=== PATIENT | female | born 1965 | race Caucasian/White ===

== ENCOUNTER 2017-06-05 08:42 | Emergency (ER) | payer OTHER ==
[~2017-06-05] VITALS: Ht 160 cm; Wt 89.8 kg
[~2017-06-05 08:42] MED LIST: ALBU8I INH; AMLO5TAB22 PO; ASPI81TA82 PO; B2100TAB PO; BACL10TA PO; BUTACAP PO; CLON.1 PO; CYMB30CA PO; FEXO180 PO; GABA300C3 PO; HYDR-3534 PO; META0.52 PO; MULT-65 PO; PROT40TA PO; TOPI25 PO; VITA250L PO; VITA50TA3 PO
[2017-06-05 08:56] VITALS: BP 150/82; PULSE 109; RESP 18; TEMP 98.3; O2SAT 96
[2017-06-05] MEDS ORDERED: SODIUM CHLOR 0.9% 1000 ML INJ 1,000 ML IV SCH (09:03)
[2017-06-05 09:08] VITALS: O2SAT 96
[2017-06-05] MEDS ORDERED: ALUMINUM/MAGNESIUM/SIMETH 30 ML CUP PO ONE (09:15)
[2017-06-05] MEDS ORDERED: SODIUM CHLORIDE 0.9% FLUSH 10 ML FLUSH IV FLUSH PRN (09:15)
[2017-06-05] MEDS ORDERED: ONDANSETRON HCL 4 MG/2 ML VIAL IVP ONE (09:15)
[2017-06-05] MEDS ORDERED: LIDOCAINE VISCOUS 2% SOLN 15 ML UDC PO ONE (09:15)
--- NOTE | 2017-06-05 09:15 | PD ---
HPI Chief Complaint: GI Complaint Time Seen by Provider: 09:03 Travel History International Travel<30 days: No Contact w/Intl Traveler<30days: No Traveled to known affect area: No History of Present Illness HPI 52-year-old female with history of fibromyalgia, gastroesophageal reflux, multiple medical issues, presents to the ER today because of 4 weeks' history of cough, sore throat, nausea, vomiting, and diarrhea. She denies any fevers, abdominal pains, or other symptoms. She has been to her primary care physician multiple times, last time was 2 weeks ago and had been given treatment for viral syndrome. She is scheduled to see a GI doctor in 2 weeks. She states that she was to figure out what's going on, has been vomiting about 3 times today already. Modifying Factors: None Associated Signs & Symptoms: Cough, sore throat, nausea, vomiting, diarrhea for at least 4 weeks Risk Factors: None PFSH Past Medical History Arthritis: Yes (RIGHT KNEE) Autoimmune Disease: No Anxiety: No Depression: Yes Heart Rhythm Problems: No Cancer: No Cardiac Catheterization: No Cardiovascular Problems: Yes (htn) High Cholesterol: No Chest Pain: No Congestive Heart Failure: No Diabetes: No Diminished Hearing: No Diverticulitis: Yes (DIVERTICULOSIS) Endocrine: No Fibromyalgia: Yes Gastrointestinal Disorders: Yes (DIVERTICULOSIS, GERD) GERD: Yes Genitourinary: No Hepatitis: No Hiatal Hernia: No Hypertension: Yes Immune Disorder: Yes (FIBROMYALGIA) Implanted Vascular Access Dvce: No Musculoskeletal: Yes (FIBROMYALGIA) Neurologic: Yes (MIGRAINES, 2 TIAS) Psychiatric: No Reproductive: No Respiratory: No Migraines: Yes Myocardial Infarction: No Thyroid Disease: No Ulcer: No Influenza Vaccination: Yes ?: Not Menopausal: Yes Past Surgical History Abdominal Surgery: Yes (GALLBLADDER REMOVAL ) AICD: No Cardiac Surgery: No Cholecystectomy: Yes (1991) Coronary Artery Bypass Graft: No Ear Surgery: No Endocrine Surgery: No Eye Surgery: No Gynecologic Surgery: Yes (HYSTERECTOMY ) Hysterectomy: Yes Joint Replacement: No Oral Surgery: No Pacemaker: No Thoracic Surgery: No Other Surgery: Yes Family History Family Myocardial Infarction: Yes Social History Alcohol Use: Yes (OCCASIONAL) Tobacco Use: Yes (1/2 PPD) Substance Use: No Allergies-Medications (Allergen,Severity, Reaction): Coded Allergies: cefepime (Unverified Allergy, Severe, Rash, 06/05/17) ceftaroline fosamil (Unverified Allergy, Severe, Rash, 06/05/17) cephalexin (Unverified Allergy, Severe, HIVES, 06/05/17) cimetidine (Unverified Allergy, Severe, Anaphylaxis, PARALYZES MUSCLE, 06/05) sumatriptan (Unverified Allergy, Severe, STOPS BREATHING, 06/05/17) bupropion (Unverified Allergy, Intermediate, HIVES, 06/05/17) acetaminophen (Unverified Adverse Reaction, Severe, Nausea/Vomiting, ) hydrocodone (Unverified Adverse Reaction, Severe, Nausea/Vomiting, 06/05/17) Reported Meds & Prescriptions Reported Meds & Active Scripts Active Reported Riboflavin 100 Mg Tablet 500 Mg PO DAILY Vitamin B-6 (Pyridoxine HCl) 100 Mg Tab 200 Mg PO DAILY Lyrica (Pregabalin) 225 Mg Cap 250 Mg PO BID [servella] 25 Mg PO BID Psyllium (Psyllium Husk) 0.4 Gram Capsule 1 Cap PO DAILY Topamax (Topiramate) 50 Mg Tab 75 Mg PO BID Protonix (Pantoprazole Sodium) 40 Mg Tab 40 Mg PO BID Multi-Vitamin Daily (Multiple Vitamin) 1 Tab Tab 1 Tab PO DAILY Lortab (Hydrocodone-Acetaminophen) 7.5-325 Mg Tab 1 Tab PO Q6H PRN Buffy Allergy (Fexofenadine HCl) 180 Mg Tab 180 Mg PO DAILY B-12 (Cyanocobalamin) 2,500 Mcg Tab 2,500 Mcg PO DAILY Clonidine (Clonidine HCl) 0.1 Mg Tab 0.1 Mg PO BID Baclofen 10 Mg Tab 10 Mg PO BID Aspirin 81 Mg Chew 81 Mg CHEW DAILY Amlodipine (Amlodipine Besylate) 5 Mg Tab 5 Mg PO DAILY Ventolin Hfa 18 GM Inh (Albuterol Sulfate) 90 Mcg/Act Aer 2 Puff INH Q4-6H PRN Review of Systems Except as stated in HPI: all other systems reviewed are Neg Physical Exam Narrative GENERAL: Well-developed middle age white female patient currently mild distress. Awake and oriented 3. SKIN: Focused skin assessment warm/dry. HEAD: Atraumatic. Normocephalic. EYES: Pupils equal and round. No scleral icterus. No injection or drainage. ENT: No nasal bleeding or discharge. Mucous membranes pink and moist. Mild pharyngeal erythema without exudates. Tonsillar pillars are symmetrical. No significant uvular edema. NECK: Trachea midline. No JVD. CARDIOVASCULAR: Regular rate and rhythm. No murmur appreciated. RESPIRATORY: No accessory muscle use. Clear to auscultation. Breath sounds equal bilaterally. GASTROINTESTINAL: Abdomen soft, non-tender, nondistended. Hepatic and splenic margins not palpable. MUSCULOSKELETAL: No obvious deformities. No clubbing. No cyanosis. No edema. NEUROLOGICAL: Awake and alert. No obvious cranial nerve deficits. Motor grossly within normal limits. Normal speech. PSYCHIATRIC: Appropriate mood and affect; insight and judgment normal. Data Data Last Documented VS Vital Signs Date Time Temp Pulse Resp B/P (MAP) Pulse Ox O2 Delivery O2 Flow Rate FiO2 06/05/17 09:08 96 Room Air 06/05/17 08:56 98.3 109 18 150/82 (104) Orders Orders Complete Blood Count With Diff (06/05/17 09:03) Comprehensive Metabolic Panel (06/05/17 09:03) Lipase (06/05/17 09:03) Abdomen, Flat & Upright (06/05/17 ) Iv Access Insert/Monitor (06/05/17 09:03) Ecg Monitoring (06/05/17 09:03) Oximetry (06/05/17 09:03) Ondansetron Inj (Zofran Inj) (06/05/17 09:15) Sodium Chlor 0.9% 1000 Ml Inj (Ns 1000 M (06/05/17 09:03) Sodium Chloride 0.9% Flush (Ns Flush) (06/05/17 09:15) Chest, Single Ap (06/05/17 09:03) Al-Mag Hy-Si 40-40-4 Mg/Ml Liq (Mag-Al P (06/05/17 09:15) Lidocaine 2% Viscous (Xylocaine 2% Visco (06/05/17 09:15) Group A Rapid Strep Screen (06/05/17 09:03) Strep Culture (Group A) (06/05/17 09:30) Potassium Chloride (Kcl) (06/05/17 10:30) Ct Abd/Pel W Iv Contrast(Rout) (06/05/17 10:50) Iohexol 350 Inj (Omnipaque 350 Inj) (06/05/17 11:12) Labs Laboratory Tests Test 06/05/17 09:29 White Blood Count 8.2 TH/MM3 Red Blood Count 4.72 MIL/MM3 Hemoglobin 14.2 GM/DL Hematocrit 41.7 % Mean Corpuscular Volume 88.4 FL Mean Corpuscular Hemoglobin 30.2 PG Mean Corpuscular Hemoglobin Concent 34.1 % Red Cell Distribution Width 13.3 % Platelet Count 204 TH/MM3 Mean Platelet Volume 7.9 FL Neutrophils (%) (Auto) 63.9 % Lymphocytes (%) (Auto) 26.7 % Monocytes (%) (Auto) 7.1 % Eosinophils (%) (Auto) 1.5 % Basophils (%) (Auto) 0.8 % Neutrophils # (Auto) 5.2 TH/MM3 Lymphocytes # (Auto) 2.2 TH/MM3 Monocytes # (Auto) 0.6 TH/MM3 Eosinophils # (Auto) 0.1 TH/MM3 Basophils # (Auto) 0.1 TH/MM3 CBC Comment DIFF FINAL Differential Comment Blood Urea Nitrogen 6 MG/DL Creatinine 1.10 MG/DL Random Glucose 171 MG/DL Total Protein 7.7 GM/DL Albumin 3.7 GM/DL Calcium Level 9.4 MG/DL Alkaline Phosphatase 83 U/L Aspartate Amino Transf (AST/SGOT) 37 U/L Alanine Aminotransferase (ALT/SGPT) 46 U/L Total Bilirubin 0.5 MG/DL Sodium Level 143 MEQ/L Potassium Level 2.9 MEQ/L Chloride Level 109 MEQ/L Carbon Dioxide Level 23.0 MEQ/L Anion Gap 11 MEQ/L Estimat Glomerular Filtration Rate 52 ML/MIN Lipase 131 U/L MDM Medical Decision Making Medical Screen Exam Complete: Yes Emergency Medical Condition: Yes Medical Record Reviewed: Yes Interpretation(s) Laboratory Tests Test 06/05/17 09:29 Blood Urea Nitrogen 6 MG/DL (7-18) Creatinine 1.10 MG/DL (0.50-1.00) Random Glucose 171 MG/DL (74-106) Potassium Level 2.9 MEQ/L (3.5-5.1) Chloride Level 109 MEQ/L (98-107) Estimat Glomerular Filtration Rate 52 ML/MIN (>89) Last 24 hours Impressions Chest X-Ray 06/05/17 0903 Signed Impressions: Service Date/Time: Monday, June 05, 2017 09:12 - CONCLUSION: No acute disease. El Wyatt MD Abdomen X-Ray 06/05/17 0000 Signed Impressions: Service Date/Time: Monday, June 05, 2017 09:13 - CONCLUSION: Nonspecific bowel gas pattern. El Wyatt MD Differential Diagnosis Viral syndrome versus strep pharyngitis versus dehydration versus metabolic issues versus GERD versus pneumonia Narrative Course Lab work shows a low potassium and potassium was given in the ER. Patient was given Zofran with improvement in nausea and vomiting in the ER. Initial x-ray does not show any signs of obstruction. Strep test is negative. Case was discussed with who is covering for [facility] and he saw the patient, wanted to get a CAT scan for further evaluation. CAT scan was done and did not show any signs of acute processes. At this point, considering that the symptoms of been going on for weeks and months, he states that the patient can be released and he will obtain patient GI follow-up this coming week. Return for any worsening in symptoms as needed. The plan has been discussed with the patient and she states understanding. Diagnosis Primary Impression: Nausea & vomiting Additional Instructions: Follow-up with GI doctor as discussed with [facility] physician. Return for worsening in symptoms as needed. Disposition: 01 DISCHARGE HOME Condition: Stable Efrain Tirado MD Jun 05, 2017 09:15
--- NOTE | 2017-06-05 09:32 | RADRPT ---
EXAM DATE/TIME: 06/05/2017 09:13 [facility] COMPARISON: No previous studies available for comparison. INDICATIONS : Nausea, vomiting, diarrhea, cramping. MEDICAL HISTORY : Hypertension. Diverticulosis. Gastroesophageal reflux disease. TIA. Fibromyalgia. Arthritis. SURGICAL HISTORY : Cholecystectomy. Hysterectomy. Right knee. Hernia repair. ENCOUNTER: Initial ACUITY: 4 - 6 months PAIN SCORE: 4/10 LOCATION: abdomen FINDINGS: Cholecystectomy clips right upper quadrant and numerous surgical tacks overlie the abdomen. A paucity of bowel gas is seen. No obvious dilated loops. No abnormal calcifications. CONCLUSION: Nonspecific bowel gas pattern. El Wyatt MD on June 05, 2017 at 9:29 Board Certified Radiologist. This report was verified electronically.
--- NOTE | 2017-06-05 09:34 | RADRPT ---
EXAM DATE/TIME: 06/05/2017 09:12 [facility] COMPARISON: CHEST SINGLE AP, May 03, 2016, 21:57. INDICATIONS : Sore throat, cough. MEDICAL HISTORY : Hypertension. Diverticulosis. Gastroesophageal reflux disease. TIA. Fibromyalgia. Arthritis. SURGICAL HISTORY : Cholecystectomy. Hysterectomy. Right knee. Hernia repair. ENCOUNTER: Initial ACUITY: 4 - 6 months PAIN SCORE: 0/10 LOCATION: chest FINDINGS: A single view of the chest demonstrates the lungs to be symmetrically aerated without evidence of mas s, infiltrate or effusion. The cardiomediastinal contours are unremarkable. Osseous structures are intact. CONCLUSION: No acute disease. El Wyatt MD on June 05, 2017 at 9:30 Board Certified Radiologist. This report was verified electronically.
[2017-06-05 09:40] LABS: AUTOMATED NEUTROPHIL # 5.2 TH/MM3 (1.8-7.7); BASOPHIL # 0.1 TH/MM3 (0-0.2); BASOPHIL % 0.8 % (0.0-2.0); EOSINOPHIL # 0.1 TH/MM3 (0-0.4); EOSINOPHIL % 1.5 % (0.0-4.0); HEMATOCRIT 41.7 % (35.0-46.0); HEMO FLAGS DIFF FINAL; LYMPH % 26.7 % (9.0-44.0); LYMPHOCYTE # 2.2 TH/MM3 (1.0-4.8); MEAN CELL VOLUME 88.4 FL (80.0-100.0); MEAN CORPUSCULAR HEMOGLOBIN 30.2 PG (27.0-34.0); MEAN CORPUSCULAR HGB CONC 34.1 % (32.0-36.0); MONO % 7.1 % (0.0-8.0); NEUT % 63.9 % (16.0-70.0); PLATELET COUNT 204 TH/MM3 (150-450); RED BLOOD COUNT 4.72 MIL/MM3 (4.00-5.30); RED CELL DISTRIBUTION WIDTH 13.3 % (11.6-17.2); WHITE BLOOD COUNT 8.2 TH/MM3 (4.0-11.0)
[2017-06-05 09:53] LABS: AST (GOT) 37 U/L (15-37); GLOMERULAR FILTRATION RATE 52 ML/MIN (>89)
[2017-06-05] MEDS ORDERED: CLON0.1T PO (10:08)
[2017-06-05] MEDS ORDERED: VENTAER INH (10:08)
[2017-06-05] MEDS ORDERED: [UNRECOGNIZED DRUG - OTHER] PO (10:08)
[2017-06-05] MEDS ORDERED: PSYL0.4C PO (10:08)
[2017-06-05] MEDS ORDERED: ASPI81CH CHEW (10:08)
[2017-06-05] MEDS ORDERED: MULT-65 PO (10:08)
[2017-06-05] MEDS ORDERED: RIBO100T2 PO (10:08)
[2017-06-05] MEDS ORDERED: CYAN2500 PO (10:08)
[2017-06-05] MEDS ORDERED: BACL10TA PO (10:08)
[2017-06-05] MEDS ORDERED: PROT40TA PO (10:08)
[2017-06-05] MEDS ORDERED: AMLO5TAB2 PO (10:08)
[2017-06-05] MEDS ORDERED: PYRI100T PO (10:08)
[2017-06-05] MEDS ORDERED: HYDR-3534 PO (10:08)
[2017-06-05] MEDS ORDERED: FEXO15TA PO (10:08)
[2017-06-05] MEDS ORDERED: TOPA50TA7 PO (10:08)
[2017-06-05] MEDS ORDERED: LYRI225C PO (10:08)
[2017-06-05 10:18] LABS: ALKALINE PHOSPHATASE 83 U/L (45-117); ALT (GPT) 46 U/L (10-53); ANION GAP 11 MEQ/L (5-15); BLOOD UREA NITROGEN 6 MG/DL (7-18); CHLORIDE 109 MEQ/L (98-107); SODIUM (NA) 143 MEQ/L (136-145); TOTAL BILIRUBIN ADULT 0.5 MG/DL (0.2-1.0)
[2017-06-05 10:20] LABS: POTASSIUM 2.9 MEQ/L (3.5-5.1)
[2017-06-05] MEDS ORDERED: POTASSIUM CHLORIDE 10 MEQ CONTROLLED RELEASE TAB PO ONE (10:30)
[2017-06-05] MEDS ORDERED: IOHEXOL 350 MG/ML 10 ML VIAL (for RAD DIAG) IVCONTRAST ONE (11:12)
--- NOTE | 2017-06-05 11:40 | HHI.PR ---
Subjective Remarks Called to see patient with 4 weeks of GERD ,nausea and vomit cough loose stools just feeling badly in er had lab tests which showed low potassium ,cmp lipase cbc all normal as was rapid strep test. Patient is on multiple medications for fibromyalgia including gabapentin cymbalta . Patient was given zofran and potassium ,does have GI appt but is 2 weeks away . I ordered CT abdomen for evaluation. Objective Vitals GENERAL: SKIN: Warm and dry. HEAD: Atraumatic. Normocephalic. EYES: Pupils equal and round. No scleral icterus. No injection or drainage. ENT: No nasal bleeding or discharge. Mucous membranes pink and moist. NECK: Trachea midline. No JVD. CARDIOVASCULAR: Regular rate and rhythm. RESPIRATORY: No accessory muscle use. Clear to auscultation. Breath sounds equal bilaterally. GASTROINTESTINAL: Abdomen soft, non-tender, nondistended. Hepatic and splenic margins not palpable. MUSCULOSKELETAL: Extremities without clubbing, cyanosis, or edema. No obvious deformities. NEUROLOGICAL: Awake and alert. No obvious cranial nerve deficits. Motor grossly within normal limits. Five out of 5 muscle strength in the arms and legs. Normal speech. PSYCHIATRIC: Appropriate mood and affect; insight and judgment normal. Vital Signs Date Time Temp Pulse Resp B/P (MAP) Pulse Ox O2 Delivery O2 Flow Rate FiO2 06/05/17 09:08 96 Room Air 06/05/17 08:56 98.3 109 18 150/82 (104) 96 Result Diagram: 06/05/1792806/05/17 0929 A/P Problem List: (1) Nausea & vomiting ICD Codes: R11.2 - Nausea with vomiting, unspecified Plan: await CT if negative will try discharge and i will move up GI appt. will probably need endo and colon last colon over 1 year ago (2) Abdominal pain ICD Codes: R10.9 - Unspecified abdominal pain Plan: as above Assessment and Plan as above check CT abdomen and to have prescription for zofran and potassium and continue home medications Nakul Verduzco MD Jun 05, 2017 11:40
--- NOTE | 2017-06-05 11:41 | RADRPT ---
EXAM DATE/TIME: 06/05/2017 11:07 [facility] COMPARISON: CT ABDOMEN & PELVIS W CONTRAST, July 10, 2015, 20:59. INDICATIONS : Nausea and vomiting. IV CONTRAST: 95 cc Omnipaque 350 (iohexol) IV ORAL CONTRAST: No oral contrast ingested. RADIATION DOSE: 19.96 CTDIvol (mGy) MEDICAL HISTORY : Hypertension. Diverticulosis. SURGICAL HISTORY : Cholecystectomy. Hysterectomy. ENCOUNTER: Initial ACUITY: 1 day PAIN SCALE: 0/10 LOCATION: abdomen TECHNIQUE: Volumetric scanning of the abdomen and pelvis was performed. Using automated exposure control and ad justment of the mA and/or kV according to patient size, radiation dose was kept as low as reasonably achievable to obtain optimal diagnostic quality images. DICOM format image data is available electro nically for review and comparison. FINDINGS: No pleural or pericardial effusions. Patient is status post cholecystectomy and hysterectomy. There i s marked fatty infiltration of the liver. Spleen, pancreas, adrenal glands, kidneys are unremarkable. Patient has had previous mesh repair of ventral hernia. Urinary bladder is unremarkable. There is di verticulosis of the sigmoid colon without diverticulitis. Descending colonic and transverse colonic d iverticuli are also noted. The bilateral ovaries are normal in appearance. Atherosclerotic calcificat ions of the aorta and iliac branches identified. Lung bases are clear. Osseous structures are intact. CONCLUSION: No acute disease. El Wyatt MD on June 05, 2017 at 11:38 Board Certified Radiologist. This report was verified electronically.
[2017-06-05 12:24] VITALS: BP 142/78
== END 2017-06-05 12:26 | disposition home or self-care (01) ==
LOC: PHED 08:42
DX: R11.2 Nausea with vomiting, unspecified (principal); E87.6 Hypokalemia; R10.9 Unspecified abdominal pain; R05 Cough; R07.0 Pain in throat; R19.7 Diarrhea, unspecified; I10 Essential (primary) hypertension; F17.200 Nicotine dependence, unspecified, uncomplicated; Z87.39 Personal history of other diseases of the musculoskeletal system and connective tissue; Z86.59 Personal history of other mental and behavioral disorders; Z86.79 Personal history of other diseases of the circulatory system; Z87.19 Personal history of other diseases of the digestive system; Z86.69 Personal history of other diseases of the nervous system and sense organs
CPT/HCPCS: 71010; 74020; 74177; 80053; 83690; 85025; 87081; 87880; 96361; 96374; 99285; J2405; J7030; Q9967